=== PATIENT | male | born 1985 ===

== ENCOUNTER 2019-07-15 02:29 | Inpatient (IN) ==
[2019-07-15 07:10] LABS: Allen Test Positive; Pt O2 Delivery Device Room Air
[2019-07-15 07:11] LABS: ABG HCO3 16.7 MMOL/L (20-26); ABG Oxygen Saturation 97.3 % (95-100); ABG PCO2 35.5 MM HG (35-48); ABG PO2 100.6 MM HG (80-95); ABG TCO2 17.8 MMOL/L (23-27)
[2019-07-15 07:17] LABS: Alanine Aminotransferase 35 U/L (16-61); Albumin 3.3 G/DL (3.4-5.0); Alkaline Phosphatase 49 U/L (45-117); Aspartate Amino Transferase 15 U/L (0-37); Bilirubin,Total < 0.39 MG/DL (0.2-1.0); Blood Urea Nitrogen 11 MG/DL (7-18); Calcium 8.3 MG/DL (8.5-10.1); Estimated Glom Filtration Rate 91 ML/MIN; Glucose 148 MG/DL (74-106); Osmolality,Calculated 282.3 MOS/KG (273-304); Total Protein 6.3 G/DL (6.4-8.3)
[2019-07-15] MEDS ORDERED: ACETAMINOPHEN 325 MG TABLET PO PRN (09:30)
[2019-07-15] MEDS ORDERED: INSULIN GLARGINE 100 UNIT/ML SUBCUT SCH ×2 (09:30→10:55)
[2019-07-15] MEDS ORDERED: ONDANSETRON 4 MG/2 ML VIAL IV PRN (09:30)
[2019-07-15] MEDS ORDERED: GLUCAGON 1 MG VIAL IM PRN (09:30)
[2019-07-15] MEDS ORDERED: DEXTROSE 50% 25 GM/50 ML VIAL IV PRN (09:30)
[2019-07-15] MEDS: levETIRAcetam 500 MG TABLET PO SCH ×2 (09:50→20:34)
[2019-07-15] MEDS: ENOXAPARIN 40 MG/0.4 ML SYRINGE SUBCUT SCH (09:50)
[2019-07-15] MEDS: SERTRALINE 100 MG TABLET PO SCH (09:50)
[2019-07-15] MEDS: PANTOPRAZOLE 40 MG TABLET PO SCH (09:50)
[2019-07-15] MEDS: LEVOTHYROXINE 25 MCG TABLET PO SCH (09:50)
[2019-07-15] MEDS: SODIUM CHLORIDE 0.9% 1,000 ML IV SCH ×2 (09:51→22:00)
[2019-07-15] MEDS ORDERED: INSULIN LISPRO 100 UNIT/ML SUBCUT SCH ×2 (10:00→12:00)
[2019-07-15 11:26] LABS: Osmolality,Calculated 283.7 MOS/KG (273-304)
[2019-07-15] MEDS: INSULIN LISPRO 100 UNIT/ML SUBCUT SCH ×3 (11:40→20:35)
[2019-07-16] MEDS: INSULIN LISPRO 100 UNIT/ML SUBCUT SCH ×4 (00:15→11:41)
[2019-07-16] MEDS: SODIUM CHLORIDE 0.9% 1,000 ML IV SCH ×2 (05:58→15:08)
[2019-07-16 06:10] LABS: Calcium 7.9 MG/DL (8.5-10.1); Osmolality,Calculated 282.3 MOS/KG (273-304); Risk Ratio 3.51; Thyroid Stimulating Hormone 2.09 uIU/ml (0.358-3.74); VLDL CHOLESTEROL 32.8 MG/DL
[2019-07-16] MEDS ORDERED: POTASSIUM CHLORIDE 20 MEQ TABLET PO PRN (07:35)
[2019-07-16] MEDS: LEVOTHYROXINE 25 MCG TABLET PO SCH (08:40)
[2019-07-16] MEDS: SERTRALINE 100 MG TABLET PO SCH (08:40)
[2019-07-16] MEDS: PANTOPRAZOLE 40 MG TABLET PO SCH (08:40)
[2019-07-16] MEDS: levETIRAcetam 500 MG TABLET PO SCH (08:40)
[2019-07-16] MEDS: ENOXAPARIN 40 MG/0.4 ML SYRINGE SUBCUT SCH (08:41)
[2019-07-16 11:57] VITALS: BP 111/79
== END 2019-07-16 14:46 | disposition home or self-care (01) | DRG 420 ==
LOC: SUPCPDRO 06:16 → SUATTDRO 06:16 → N.ICU 06:16 → N.2E 12:01
PROVIDERS: ADMIT Internal Medicine; ATTEND Internal Medicine